=== PATIENT | male | born 1955 | race Two or more races ===

== ENCOUNTER 2018-07-05 13:00 | Inpatient (IN) | payer OTHER ==
[~2018-07-05] VITALS: Ht 180.3 cm; Wt 122.5 kg
[2018-07-05] MEDS ORDERED: JANUMET 50-5001 EACH PO (14:56)
[2018-07-05] MEDS ORDERED: GABAPENTIN100 MG PO (14:57)
[2018-07-05] MEDS ORDERED: VASOTEC20 M1 PO (14:57)
[2018-07-05] MEDS ORDERED: ZYLOPRIM300 MG PO (14:58)
[2018-07-05] MEDS ORDERED: LOPID PO (14:58)
[2018-07-11] MEDS ORDERED: GEMFIBROZIL600 MG PO (09:04)
[2018-07-14] MEDS ORDERED: OMEPRAZOLE20 MG PO (14:59)
[2018-07-14] MEDS ORDERED: PERCOCET 5-3251 EACH PO (14:59)
[2018-07-14] MEDS ORDERED: INTESTINEX680 M1 PO (14:59)
== END 2018-07-14 17:40 | disposition home or self-care (01) | DRG 331 ==
LOC: O/R 07-11 06:00 → SURH 07-11 06:00
PROVIDERS: Surgery
PROC: 07TC4ZZ Resection of Pelvis Lymphatic, Percutaneous Endoscopic Approach (ICD-10-PCS; 2018-07-11)
PROC: 3E0F7GC Introduction of Other Therapeutic Substance into Respiratory Tract, Via Natural or Artificial Opening (ICD-10-PCS; 2018-07-11)
PROC: 0DTF4ZZ Resection of Right Large Intestine, Percutaneous Endoscopic Approach (ICD-10-PCS; principal; 2018-07-11 10:45)
DX: C18.0 Malignant neoplasm of cecum (principal); R59.0 Localized enlarged lymph nodes; E66.09 Other obesity due to excess calories; I11.9 Hypertensive heart disease without heart failure; E11.9 Type 2 diabetes mellitus without complications; E78.4 Other hyperlipidemia

== ENCOUNTER 2020-04-15 16:30 | Inpatient (IN) | payer OTHER ==
[~2020-04-15] VITALS: Ht 185.4 cm; Wt 117.9 kg
[~2020-04-15 16:30] MED LIST: GABAPENTIN100 MG PO; GEMFIBROZIL600 MG PO; INTESTINEX680 M1 PO; JANUMET 50-5001 EACH PO; LOPID PO; OMEPRAZOLE20 MG PO; PERCOCET 5-3251 EACH PO; VASOTEC20 M1 PO; ZYLOPRIM300 MG PO
== END 2020-04-18 16:30 | disposition home or self-care (01) | DRG 394 ==
LOC: ER 16:30 → SURG 21:17 → SEC-K 21:17 → SURG 04-16 01:56
PROVIDERS: ADMIT Surgery; ATTEND Surgery
PROC: BW21ZZZ Computerized Tomography (CT Scan) of Abdomen and Pelvis (ICD-10-PCS; principal; 2020-04-15)
PROC: 3E0F7GC Introduction of Other Therapeutic Substance into Respiratory Tract, Via Natural or Artificial Opening (ICD-10-PCS; 2020-04-17)
DX: K43.0 Incisional hernia with obstruction, without gangrene (principal); N17.8 Other acute kidney failure; E66.09 Other obesity due to excess calories; J45.909 Unspecified asthma, uncomplicated; E11.9 Type 2 diabetes mellitus without complications; I11.9 Hypertensive heart disease without heart failure; E78.00 Pure hypercholesterolemia, unspecified; E78.49 Other hyperlipidemia

== ENCOUNTER 2020-04-24 10:26 | Inpatient (IN) | payer OTHER ==
[~2020-04-24] VITALS: Ht 180.3 cm; Wt 115.2 kg
[2020-04-29] MEDS ORDERED: TAMS0.4C PO (14:01)
[2020-04-29] MEDS ORDERED: LOPID PO (14:01)
[2020-05-12] MEDS ORDERED: GEMFIBROZIL600 MG PO (08:13)
[2020-05-12] MEDS ORDERED: JANUMET 50-1,01 EACH PO (08:13)
== END 2020-05-15 10:37 | disposition home or self-care (01) | DRG 355 ==
LOC: SURH 05-09 08:45 → O/R 05-09 11:06 → SURH 05-09 11:06 → O/R 05-13 13:12 → SURG 05-13 13:12
PROVIDERS: ADMIT Surgery; ATTEND Surgery
PROC: 0WUF4JZ Supplement Abdominal Wall with Synthetic Substitute, Percutaneous Endoscopic Approach (ICD-10-PCS; principal; 2020-05-13 11:30)
DX: K43.0 Incisional hernia with obstruction, without gangrene (principal); Z20.828 Contact with and (suspected) exposure to other viral communicable diseases